=== PATIENT | male | born 1965 | race Two or more races ===

== ENCOUNTER 2021-06-04 00:35 | Emergency (ER) | payer MEDICAID ==
[~2021-06-04] VITALS: Ht 182.9 cm; Wt 99.8 kg
[2021-06-04] MEDS ORDERED: HYDR-3980 PO (01:27)
[2021-06-04] MEDS ORDERED: CEPH500T PO (01:27)
[2021-06-04] MEDS ORDERED: SULF1TAB48 PO (01:27)
[2021-06-04] MEDS ORDERED: CEFTRIAXONE 1 G VIAL IM ONE (01:30)
[2021-06-04] MEDS ORDERED: SULFAMETH/TRIMETH 800/160 MG TABLET PO ONE (01:30)
[2021-06-04] MEDS ORDERED: HYDROCODONE/APAP 10-325 MG TABLET PO ONE (01:30)
[2021-06-04] MEDS ORDERED: ONDANSETRON ODT 4 MG TAB.RAPDIS SL ONE (01:30)
[2021-06-04] MEDS ORDERED: KETOROLAC TROMETHAMINE 30 MG INJ IM ONE (01:30)
[2021-06-04] MEDS ORDERED: LIDOCAINE HCL 1% 20 ML VIAL ONE (01:35)
[2021-06-04] MEDS ORDERED: ONDANSETRON ODT 4 MG TAB.RAPDIS ONE (01:35)
[2021-06-04] MEDS ORDERED: CEFTRIAXONE 1 G VIAL ONE (01:36)
[2021-06-04] MEDS ORDERED: KETOROLAC TROMETHAMINE 30 MG INJ ONE (01:36)
[2021-06-04] MEDS ORDERED: HYDROCODONE/APAP 10-325 MG TABLET ONE (01:36)
[2021-06-04] MEDS ORDERED: SULFAMETH/TRIMETH 800/160 MG TABLET ONE (01:36)
--- NOTE | 2021-06-04 01:40 | NUR ---
Patient discharged to home in stable condition. Written and verbal after care instructions given. Patient verbalizes understanding of instructions. Stressed follow up or return to ER for worsening s/s.
[2021-06-04 01:41] VITALS: BP 139/89
== END 2021-06-04 01:42 | disposition home or self-care (01) ==
LOC: ER 00:42
DX: S60.561A Insect bite (nonvenomous) of right hand, initial encounter (principal); L03.113 Cellulitis of right upper limb; W57.XXXA Bitten or stung by nonvenomous insect and other nonvenomous arthropods, initial encounter; Y92.89 Other specified places as the place of occurrence of the external cause; M25.512 Pain in left shoulder; R03.0 Elevated blood-pressure reading, without diagnosis of hypertension
CPT/HCPCS: 96372 ×2; 99284; J0696; J1885; J3490; A4663; Q0162